=== PATIENT | female | born 1935 | race Caucasian/White ===

== ENCOUNTER → 2023-06-15 10:04 | Outpatient (REF) | payer OTHER, SELFPAY | LOC: RCS 10:04 | PROVIDERS: ATTENDING PHYSICIAN Internal Medicine Cardiovascular Disease; FAMILY PHYSICIAN Internal Medicine Geriatric Medicine | DX: E78.00 Pure hypercholesterolemia, unspecified (principal); I10 Essential (primary) hypertension; I35.0 Nonrheumatic aortic (valve) stenosis; I45.0 Right fascicular block; R01.1 Cardiac murmur, unspecified | CPT/HCPCS: 93306 ==

== ENCOUNTER 2023-08-29 07:16 | Day surgery (SDC) | payer OTHER, SELFPAY ==
[2023-08-29] VITALS (14 sets, daily range): BP systolic 99–150; BP diastolic 43–83; BMI 24.8
[2023-08-29] MEDS: NSS 191 ML IV (07:58)
--- NOTE | 2023-08-29 10:53 | ITS.CL.CATH ---
[employer] - Catheterization
Cardiac Catheterization
Procedure Report:
CARDIAC CATHETERIZATION REPORT
Date of Procedure: 08/29/2023
Referring: Solomon Lau MD
Indication: Symptomatic aortic stenosis with history CABG x 3 (2007 at [facility])
HEMODYNAMIC DATA
AO: 157/63
LV: 196/15
The mean gradient across the aortic valve is 39 mmHg
LEFT VENTRICULOGRAPHY: Not performed
CORONARY ANGIOGRAPHY
Dominance: Right
Left Main: Normal
LAD: Focal 80% mid LAD stenosis proximal to the touchdown of a widely patent PASTORA graft. The distal LAD and large third diagonal branch fill antegrade and via the VILLAFUERTE graft
Circumflex: The circumflex is occluded distal to the takeoff of the medium to large OM1. There is retrograde filling of the large bifurcating OM 2 via LAD collaterals and the distal circumflex also fills via a collateral from the left AV groove
branch
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 The severely calcified RCA is diffusely diseased in the mid vessel and occluded proximal to the crux. There are collaterals from the conus through the AV
holger artery to supply the small RPL. There are collaterals from a acute marginal branch to the distal RPDA which faintly fills.
Bypass grafts:
1. The left internal mammary artery to the LAD is widely patent with excellent runoff
2. The vein graft to the RPDA is occluded at its origin.
3. The vein graft to the obtuse marginal branch of the circumflex is occluded at its origin
Closure Device: None. Right femoral artery angiography demonstrates 50% ostial right common iliac artery stenosis with significant calcification of the distal aorta and proximal iliac vessels bilaterally. We opted not to place a closure device as
the patient will be undergoing evaluation for TAVR
Radiation (mGy): 422
DAP (cm2.Gy): 35.7
Fluoroscopy time: 14 minutes
CONCLUSIONS
1: Severe aortic stenosis with mean gradient 39 mmHg
2: Severe campo triple-vessel CAD with patent VILLAFUERTE-LAD and occluded SVG-OM and occluded SVG-RPDA bypass grafts
3. There is no target for PCI-recommend continued medical therapy for CAD
4. Proceed with evaluation for TAVR
Copy to: Solomon Lau MD, Tray Roche MD
Johnny Gramajo MD, [facility], [facility]
[2023-08-29] MEDS: NSS 95 IV (11:08)
--- NOTE | 2023-08-29 12:00 | PTCARENOTE ---
Melodei with TAVR team speaking with pt. Pt just awoke from nap. Tolerating sips cranberry juice.
--- NOTE | 2023-08-29 12:46 | CONSULT.STRU ---
Consultation
-
Date/Time Consultation Requested: 08/29/2023
Date/Time Consultation Performed: 08/29/2023
Requesting Provider: Johnny Gramajo MD
Performing Provider: ARMEN Jimenez
Reason for Consultation: Aortic stenosis/ TAVR evaluation
Patient History
Physicians
Family Physician: Tray Roche
Outpatient Drilling Manager: Solomon Lau
Primary Drilling Manager: Solomon Lau
History of Present Illness
Mrs. Rose is a very pleasant, well appearing 87yo female who is followed by Dr. Lau as an outpatient. She presents today for cardiac catheterization. Her history is notable for NSTEMI 2023, CABG x 3 (VILLAFUERTE-LAD, SVG-LCX, SVG RPDA) 2003 in
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 She reports some mild CROWELL compared to 6 months ago but is complaining more of increased fatigue compared to last year. She stays active but does
feel she needs more frequent breaks. Her echocardiogram on 06/15/2023 showed AV PG/MG 67/37, JASMIN: 0.7, EF 60-65% and mild to moderate MR. Her cardiac cath shows severe with MG of 39, patent VILLAFUERTE-LAD graft and occluded SVG-OM and SVG-RPDA grafts.
Reviewed the pathophysiology of aortic stenosis with the patient. Explained the treatment options of SAVR and TAVR. Explained the TAVR evaluation process including follow up BMP, CT TAVR scan, CT surgery consult and Heart Team discussion. Provided
with script for BMP next week, script and appointment for CT TAVR, Consult appointment with Dr. Acevedo and a copy of the TAVR education booklet with contact information. Allowed for and answered questions.
Past Medical History
Past Medical History: CAD (h/o CABG 2003), Cancer (B- Cell Lymphoma ( Dr. Galeano)), CHF, Covid-19 (10/2021), CROWELL, HTN, Hypercholesterolemia and Valvular Disease (Aortic Stenosis, mild to moderate MR, Mild TR)
Past Surgical History
Past Surgical History: CABG (X3, [place], [place] 2004), Orthopedic (L-THR, redo-L-THR, R-THR) and Other (Bilateral Cataract Surgery)
Dental History
Regular Dental Care - Dr. Hieu Farmer [phone]
Family History
Mother: at Age (76, CHF)
Father: at Age (76, CHF)
Family Medical History: CAD (Brother)
Social History
Alcohol: Occasional
Drug: None
Tobacco: Non-Smoker
Personal:
Living: Alone
Employment: Retired
Allergies
Allergy/AdvReac Type Severity Reaction Status Date / Time
amoxicillin Allergy Unknown Verified 08/29/23 07:36
lactose Allergy Unknown Verified 08/29/23 07:38
Home Medications
�Medication �Instructions �Recorded �Confirmed �Type
aspirin 81 mg tablet,delayed 81 mg PO DAILY #1 tab 08/29/23 Rx
release
calcium carbonate 1,000 mg PO QPM 08/29/23 08/29/23 History
cholecalciferol (vitamin D3) 25 25 mcg PO DAILY 08/29/23 08/29/23 History
mcg (1,000 unit) capsule (Vitamin
D3)
ezetimibe 10 mg-simvastatin 40 mg 1 tab PO QPM 08/29/23 08/29/23 History
tablet
furosemide 20 mg tablet 20 mg PO Q48H 08/29/23 08/29/23 History
glucosamine sulfate 500 mg tablet 500 mg PO DAILY 08/29/23 08/29/23 History
(Glucosamine)
metoprolol succinate 25 mg 25 mg PO DAILY 08/29/23 08/29/23 History
tablet,extended release 24 hr
vitamin B complex 1 tab PO DAILY 08/29/23 08/29/23 History
STS%
STS %: 7.42%
Review of Systems
-
History Source: Patient
General: Reports Fatigue
HEENT: Reports No Symptoms
Respiratory: Reports CROWELL (mild)
Cardiac: Reports Palpitations (occasional) and Edema (bilateral LE); Denies Nausea or Vomiting
Abdomen/GI: Reports No Symptoms; Denies Reflux, Nausea, Vomiting or Diarrhea
: Reports No Symptoms
Musculoskeletal: Reports No Symptoms
Skin: Reports No Symptoms
Neurological: Reports No Symptoms; Denies Syncope
Vascular: Reports No Symptoms
Physical Exam
Vital Signs
Temp 98 F 08/29/23 10:20
Temp route: Temporal 08/29/23 10:20
Pulse 57 08/29/23 12:00
Resp Rate 25 08/29/23 12:00
Blood pressure 99/50 08/29/23 11:58
Blood pressure extremity used: Right upper arm 08/29/23 10:20
Position: Lying 08/29/23 10:20
MAP (cuff-Clarisa Monitor) 64 08/29/23 11:58
SaO2 99 08/29/23 12:00
Oxygen Mode of Delivery Room air 08/29/23 10:20
Can the patient verbally communicate their pain? Yes 08/29/23 12:05
Actual Weight 63.5 kg 08/29/23 07:38
Body Mass Index (BMI) 24.8 08/29/23 07:38
Labs
08/25/2023 ([facility])
H/H: 14.1/43.4
WBC: 6.8
Platelets: [id number]
Bun/Creat: 19/.07
GFR: 50
Diagnostic Studies
Echocardiogram 06/15/2023:
CONCLUSIONS
No regional wall motion abnormalities are seen. LV ejection fraction is 60-65%.
Normal right ventricular size with low normal function.
Severely dilated left atrium.
Mild to moderate mitral regurgitation.
Severe aortic stenosis; peak/mean gradients are 67/37 mmHg, calculated JASMIN 0.7
cm.
There appeared to be possible color flow pattern suggestive of small PFO.
Compared to previous echo on 06/25/2022, aortic transvalvular gradients have
increased (previous peak/mean gradients were 51/31 mmHg.
Indications:
HYPERCHOLESTEROLEMIA, HYPERTENSION, AV STENOSIS, RBBB, MURMUR
Rhythm: Sinus
Portable Study: No
Technical Quality: Fair
Contrast: None
BP: 140 / 62
PROCEDURE
A complete Transthoracic Echocardiogram was performed utilizing two-dimensional
evaluation with color flow and spectral Doppler analysis.
FINDINGS
Left Ventricle
Normal left ventricular size and systolic function. Mild to moderate concentric
left ventricular hypertrophy. No regional wall motion abnormalities are seen.
LV ejection fraction is 60-65%. Stage I diastolic dysfunction suggestive of
abnormal relaxation.
Right Ventricle
Normal right ventricular size with low normal function.
Left Atrium
Severely dilated left atrium.
Right Atrium
Normal right atrium.
Mitral Valve
Mitral valve opens normally. Thickened mitral valve leaflets. Mild to moderate
mitral regurgitation.
Aortic Valve
Thickened trileaflet aortic valve with severely restricted leaflet motion.
Severe aortic stenosis; peak/mean gradients are 67/37 mmHg, calculated JASMIN 0.7
cm. No aortic regurgitation is seen.
Tricuspid Valve
Tricuspid valve opens normally. Mild tricuspid regurgitation. Estimated
pulmonary artery pressure of 25-20 mmHg.
Pulmonic Valve
Structurally normal pulmonic valve. Mild pulmonic regurgitation.
Pericardium\\Pleura
Normal pericardium without effusion.
Aorta
The aortic root is of normal size. Normal ascending aorta.
Other Finding
The IVC is of normal size and demonstrates normal respiratory variation. There
appeared to be possible color flow pattern suggestive of small PFO. Interatrial
septum is intact with no evidence of shunting by color flow Doppler.
MEASUREMENTS (Male / Female) Normal Values
2D ECHO
LV Diastolic Diameter PLAX 4.5 cm 4.2 - 5.9 / 3.9 - 5.3 cm
LV Systolic Diameter PLAX 3.2 cm
IVS Diastolic Thickness 1.3 cm 0.6 - 1.0 / 0.6 - 0.9 cm
LVPW Diastolic Thickness 1.2 cm 0.6 - 1.0 / 0.6 - 0.9 cm
LV Relative Wall Thickness 0.6
LVOT Diameter 2.1 cm
LV Ejection Fraction MOD BP 61.3 % >= 55 %
LV Stroke Volume MOD BP 38.0 cm3
LV Cardiac Index MOD BP 1280.3 cm3/min
LV Ejection Fraction MOD 4C 64.7 %
LV Stroke Volume MOD 4C 44.0 cm3
LV Ejection Fraction 4C AL 64.8 %
LV Stroke Volume 4C AL 45.1 cm3
LV Ejection Fraction MOD 2C 58.9 %
LV Stroke Volume MOD 2C 33.0 cm3
LV Ejection Fraction 2C AL 61.4 %
LV Stroke Volume 2C AL 36.2 cm3
LA Area 4C View 21.8 cm2 <= 20 cm2
LA Length 4C 5.8 cm
LA Volume 68.0 cm3 18 - 58 / 22 - 52 cm3
LA Volume Index 37.1 cm3/m2 16 - 34 cm3/m2
Ascending Aorta Diameter 3.7 cm
M-MODE
Aortic Root Diameter MM 3.1 cm
LA Systolic Diameter MM 4.4 cm
LA Ao Ratio MM 1.4
DOPPLER
AV Peak Velocity 410.0 cm/s
AV Peak Gradient 67.2 mmHg
AV Mean Gradient 37.0 mmHg
AV Velocity Time Integral 90.9 cm
LVOT Peak Velocity 89.1 cm/s
LVOT Peak Gradient 3.2 mmHg
LVOT Velocity Time Integral 21.0 cm
LVOT Stroke Volume 72.9 cm3
LVOT Stroke Volume Index 42.4 ml/m2 empty
LVOT Cardiac Index 2456.4 cm3/min\\m2
AV Area Cont Eq vti 0.8 cm2
AV Area Cont Eq pk 0.8 cm2
Mitral E Point Velocity 79.5 cm/s
Mitral A Point Velocity 116.0 cm/s
Mitral E to A Ratio 0.7
LV E' Lateral Velocity 7.2 cm/s
Mitral E to LV E' Lateral Ratio 11.0
LV E' Septal Velocity 3.4 cm/s
Mitral E to LV E' Septal Ratio 23.3
TR Peak Velocity 195.0 cm/s
TR Peak Gradient 15.2 mmHg
HEMODYNAMIC DATA
AO: 157/63
LV: 196/15
The mean gradient across the aortic valve is 39 mmHg
Cardiac Catheterization 08/29/2023:
LEFT VENTRICULOGRAPHY: Not performed
CORONARY ANGIOGRAPHY
Dominance: Right
Left Main: Normal
LAD: Focal 80% mid LAD stenosis proximal to the touchdown of a widely patent PASTORA graft. The distal LAD and large third diagonal branch fill antegrade and via the VILLAFUERTE graft
Circumflex: The circumflex is occluded distal to the takeoff of the medium to large OM1. There is retrograde filling of the large bifurcating OM 2 via LAD collaterals and the distal circumflex also fills via a collateral from the left AV groove
branch
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 The severely calcified RCA is diffusely diseased in the mid vessel and occluded proximal to the crux. There are collaterals from the conus through the AV
holger artery to supply the small RPL. There are collaterals from a acute marginal branch to the distal RPDA which faintly fills.
Bypass grafts:
1. The left internal mammary artery to the LAD is widely patent with excellent runoff
2. The vein graft to the RPDA is occluded at its origin.
3. The vein graft to the obtuse marginal branch of the circumflex is occluded at its origin
Closure Device: None. Right femoral artery angiography demonstrates 50% ostial right common iliac artery stenosis with significant calcification of the distal aorta and proximal iliac vessels bilaterally. We opted not to place a closure device as
the patient will be undergoing evaluation for TAVR
Radiation (mGy): 422
DAP (cm2.Gy): 35.7
Fluoroscopy time: 14 minutes
CONCLUSIONS
1: Severe aortic stenosis with mean gradient 39 mmHg
2: Severe elem triple-vessel CAD with patent VILLAFUERTE-LAD and occluded SVG-OM and occluded SVG-RPDA bypass grafts
3. There is no target for PCI-recommend continued medical therapy for CAD
4. Proceed with evaluation for TAVR
Exam
General: Well Developed, Well Nourished, No Apparent Distress and Comfortable
HEENT: Normocephalic, Moist Mucous Membranes, PERRLA and EOMI
Neck: Trachea Midline
Respiratory: Clear; Negative Wheezes, Crackles or Rhonchi
Cardiac: S1/S2, Regular Rhythm and Murmur (Grade II/ systolic murmur)
GI: Soft, Non Tender, Non Distended and Normal Bowel Sounds
Rectal: Deferred by Provider
Skin: Warm and Dry
Neuro: AO x 3, No Motor Deficits and Nonfocal/Grossly Intact
Extremities: Lower Level Edema (+1 pitting bilateral LE) and Pulses (right dp pulse +2, left dp pulse +1)
Psych: Calm
Assessment / Plan
-
Procedure Type:�Isolated AVR
PERIOPERATIVE OUTCOME ESTIMATE %
Operative Mortality 7.42%
Morbidity & Mortality 12.9%
Stroke 3.38%
Renal Failure 1.96%
Reoperation 3.49%
Prolonged Ventilation 10.3%
Deep Sternal Wound Infection 0.077%
Long Hospital Stay (>14 days) 6.04%
Short Hospital Stay (<6 days)* 27.1%
Severe Aortic stenosis:
��������������� Continue evaluation for TAVR as an outpatient
��������������� [facility]
��������������� CT TAVR scan 09/09/2023 at 0930 at
��������������� CT surgery consult with Dr. Acevedo 09/15/2023
��������������� Heart team discussion at [facility]
Dental Clearance - Dr. Hieu Farmer
Data Reviewed
-
EKG: Report Reviewed by me (R-BBB)
Publishing Manager: Report Reviewed by me and Discussed with Physician
Echo: Report Reviewed by me and Discussed with Physician
Labs: Labs Reviewed by me
Old Records: Reviewed (Cardiology consult notes)
Total Time Spent with Patient (in minutes): 25
== END 2023-08-29 14:00 | disposition home or self-care (01) ==
LOC: CATH 07:16
PROVIDERS: ATTENDING PHYSICIAN Internal Medicine Cardiovascular Disease; FAMILY PHYSICIAN Internal Medicine Geriatric Medicine; OTHER PHYSICIAN Internal Medicine Cardiovascular Disease
DX: I25.10 Atherosclerotic heart disease of native coronary artery without angina pectoris (principal); I25.810 Atherosclerosis of coronary artery bypass graft(s) without angina pectoris; I08.0 Rheumatic disorders of both mitral and aortic valves; I70.0 Atherosclerosis of aorta; Q24.5 Malformation of coronary vessels; E78.00 Pure hypercholesterolemia, unspecified; I25.2 Old myocardial infarction; Z85.72 Personal history of non-Hodgkin lymphomas; Z79.82 Long term (current) use of aspirin; Z79.899 Other long term (current) drug therapy; I11.0 Hypertensive heart disease with heart failure; I45.10 Unspecified right bundle-branch block; I35.0 Nonrheumatic aortic (valve) stenosis; I08.2 Rheumatic disorders of both aortic and tricuspid valves; I70.8 Atherosclerosis of other arteries
CPT/HCPCS: 93005; 93459; C1894; Q9967

== ENCOUNTER → 2023-09-16 09:12 | Outpatient (REF) | payer OTHER, SELFPAY | LOC: RAD 09:12 | PROVIDERS: ATTENDING PHYSICIAN Nurse Practitioner Adult Health; FAMILY PHYSICIAN Internal Medicine Geriatric Medicine; REFERRING PHYSICIAN Internal Medicine | DX: I35.0 Nonrheumatic aortic (valve) stenosis (principal) | CPT/HCPCS: 74174; 75572; Q9967 ==

== ENCOUNTER 2023-10-13 07:45 | Inpatient (IN) | payer OTHER, SELFPAY ==
[2023-10-03 12:13] VITALS: BMI 25.4
[2023-10-03 13:05] LABS: % Basophils 0.7 % (0-2); % Eosinophils 4.6 % (0-6); % Immature Granulocytes 0.3 % (0-0.5); % Lymphocytes 15.5 % (20.5-51.1); % Monocytes 10.6 % (1.7-9.3); % Neutrophils 68.3 % (42.2-75.2); Absolute Basophils 0.1 10^3/uL (0-0.2); Absolute Eosinophils 0.3 10^3/uL (0-0.7); Absolute Monocytes 0.7 10^3/uL (0.1-0.6); Absolute Neutrophils 4.6 10^3/uL (1.4-6.5); Hematocrit 41.9 % (37.0-47.0); Hemoglobin 14.4 g/dL (12.0-16.0); Mean Corp Hgb Conc. 34.4 g/dL (33.0-37.0); Mean Corpuscular Hgb 30.4 pg (27.0-31.0); Mean Corpuscular Volume 88.6 fL (81.0-99.0); Mean Platelet Volume 10.6 fL (7.4-10.4); Nucleated Red Blood Cells % 0 %; Platelet Count 217 10^3/uL (130-400); Red Blood Cell Count 4.73 10^6/uL (4.20-5.40); Red Cell Dist. Width 13.2 % (11.5-14.5); White Blood Cell Count 6.7 10^3/uL (4.8-10.8)
[2023-10-03 13:08] LABS: INR 1.02; PT 13.2 Sec (11.4-14.6)
[2023-10-03 13:09] LABS: APTT 37.7 Sec (23.4-35.0)
[2023-10-03 13:15] LABS: ALT (SGPT) 25 U/L (0-35); AST (SGOT) 27 U/L (14-36); Albumin 4.4 g/dl (3.5-5.0); Alkaline Phosphatase 64 U/L (38-126); Blood Urea Nitrogen 24 mg/dl (7-17); Calcium 9.9 mg/dl (8.4-10.2); Carbon Dioxide 29 mmol/L (22-30); Chloride 104 mmol/L (98-107); Direct Bilirubin 0.1 mg/dl (0.0-0.4); Estimated Creatinine Clearance 31 ml/min; Glucose 84 mg/dl (70-99); Potassium 4.9 mmol/L (3.5-5.1); Sodium 142 mmol/L (135-145); Total Bilirubin 0.7 mg/dl (0.2-1.3); Total Protein 6.9 g/dl (6.3-8.2); eGFR 54.53
[2023-10-03 13:21] LABS: NT-proBNP 1290 pg/ml
[2023-10-03 13:30] LABS: Glycohemoglobin (HgbA1c) 7.1 % (4.0-5.6)
[2023-10-03 13:39] LABS: Urine Albumin Negative (Neg - Trace); Urine Bilirubin Negative (Negative); Urine Character Clear (Clear); Urine Color Yellow; Urine Glucose Negative (Negative); Urine Ketone Negative (Negative); Urine Leukocyte Negative (Negative); Urine Nitrite Negative (Negative); Urine Occult Blood Negative (Negative); Urine Specific Gravity 1.015 (<1.030); Urine Urobilinogen Negative (Neg - 1+)
--- NOTE | 2023-10-03 15:03 | CM ---
spoke to pt in PAT's, we discussed preop TAVR teaching including lifting and driving restrictions. she lives alone in a 2 story home with a first floor set up. her son will stay with her after dc. she has a cane and a walker at home to use if
needed. she has the TAVR educ book, soap and instructions. sheis agreeable to a f/u visit from the ct transitional care nurse after dc. plan is for TAVR 10/12/, cm role explained and all questions answered.
[2023-10-13] VITALS (33 sets, daily range): BP systolic 75–144; BP diastolic 41–79; BMI 25.1
[2023-10-13] MEDS: PROTONIX 40 MG PO (08:11)
--- NOTE | 2023-10-13 08:29 | CM ---
Reviewed chart. Mrs. Rose is in the operating room today. Prior to admission she resides alone in a two story home. She has a first floor set-up. She has a walker and single point cane at home. Her son will stay with her when she goes home.
Medical work-up in progress. The discharge plan is to return home with her son staying with her and a home visit by the Cardiothoracic Transitional Care Nurse when medically stable.
[2023-10-13] MEDS: DELTASONE 50 MG PO (08:40)
[2023-10-13] MEDS: BENADRYL 50 MG PO (08:40)
[2023-10-13 11:06] LABS: ACT-LR - POC 271 Seconds (116-155)
[2023-10-13 11:21] LABS: ACT-LR - POC 252 Seconds (116-155)
[2023-10-13 11:45] LABS: ACT-LR - POC 297 Seconds (116-155)
--- NOTE | 2023-10-13 12:26 | W.CVOR.SURPR ---
CVOR Surgeon Immed Pre Op
-
I have examined this patient prior to performance of the scheduled procedure.
The patient's condition is unchanged from the time of the dictated/written History and
Physical and the patient is able to undergo the scheduled procedure.
--- NOTE | 2023-10-13 12:26 | W.PN.UPDATE ---
Update Note
Progress Note Update
Reviewed Ms. Rose with the heart team in the preTAVR SDM and confirmed a 23 mm S3 via (R) TF access. Patient will resume aspirin post TAVR. LVEDP 28 mmHg. #23 mm S3 (serial# [id number]) successfully deployed via (R) TF access. Post implant MG 4mmHg.
--- NOTE | 2023-10-13 12:26 | W.IMMPOSTOP ---
Surgical Immed Post Op Note
-
[id number]
STRUCTURAL HEART PROCEDURE NOTE: TAVR
Preoperative Dx:
Severe aortic stenosis (P/M: 67/37, JASMIN 0.7, Bi Manager: 4.1)
CAD s/p prior CABG in 2003 (ANGIE to LAD, GSV to OM, GSV to RPDA) - ANGIE patent; both GSV occluded
RBBB
Hx of B-cell lymphoma
HTN/HChol
PVD
Postoperative Dx:
Same
[id number] combined systolic/diastolic CHF w/ elevated LVEDP @ ~28mmHg
Procedures:
1) L CFV access w/ U/S and fluoroscopic guidance, micropuncture technique, 6Fr sheath placement
2) Attempted placement of temporary RV pacing wire - unsuccessful secondary to tortuous pelvic venous anatomy
3) Exchange for LONG 6Fr L CFV sheath w/ subsequent successful placement of temporary RV pacing wire; threshold testing
4) L RA access w/ tactile, U/S, and fluoroscopic guidance, micropuncture technique, 6Fr sheath placement
5) Placement of pigtail catheter in RCC via L RA w/ limited aortography & confirmation of co-planar valve deployment angles
6) R WARRANT SERVER access w/ tactile, U/S, and fluoroscopic guidance, micropuncture technique, limited angiography via micropuncture sheath, 6Fr sheath placement
7) 8Fr dilator placement, perclose placement x 2 into R WARRANT SERVER, 8Fr sheath placement
8) Serial dilation of R ileofemoral system w/ subsequent placement of Wood E-sheath
9) Wire purchase across stenotic AV (challenging requiring numerous attempts/catheters; AL-1, AL-2, JR-4, soft-tip straight, [id number], glidewire); LVEDP assessment
10) Advance of Wood 23mm SHYAM 3 valve to ascending aorta
11) Attempted reposition of pigtail catheter w/o success
12) L WARRANT SERVER access w/ tactile, U/S, and fluoroscopic guidance; micropuncture technique, 6Fr sheath placement
13) Attempted placement of pigtail catheter via L WARRANT SERVER approach (unsuccessful)
14) Repositioning of Wood valve/delivery system to proximal descending thoracic aorta
15) Re-attempt at pigtail placement via L RA (unsuccessful) w/ subsequent successful placement of multi-purpose catheter via L RA
16) Re-advancement of SHYAM 3 valve
17) R TF TAVR w/ placement of 23mm SHYAM 3 valve
18) Completion aortography
19) Completion TTE (mean gradient 5mmHg, no AI/PVL)
20) Removal of multi-purpose catheter
21) Placement of pigtail catheter into distal abdominal aorta via L WARRANT SERVER access
20) Removal of valve delivery system & Wood E-sheath w/ R WARRANT SERVER mgmt w/ perclose sutures x 2; manual pressure
21) Completion R ileofemoral angiography
22) Limited L WARRANT SERVER angiography
23) Removal of L WARRANT SERVER 6Fr sheath w/ mgmt w/ 6Fr angioseal; manual pressure
24) Removal of 6Fr L RA sheath w/ mgmt w/ radial band
25) Temporary RV pacing wire secured in-situ given pacing requirements - pt. regained a NSR w/ BBB near the end of the procedure
Furnace Firer:
Dr. Elan Obando
Cardiac Surgeon:
Dr. Segundo Fleming
Anesthesia:
MAC & local to B/L groins, L wrist
Implants:
Wood [employer]; 23mm SHYAM 3 valve; SN [id number]
Perclose x 2
6Fr angioseal x 1
Cath Data:
Start: 1011hrs, Deploy: 1155hrs, End: 1221hrs
FT: 45.7min, mGy: 363.95, DAP: 45.0185, Contrast: 86mL
Post-TTE: mean gradient 5mmHg, no AI/PVL
Complications:
No significant; transient pacing requirements
Condition:
Stable/guarded to recovery
--- NOTE | 2023-10-13 12:44 | ITS.CL.TAVR ---
Data Coordinator - TAVR Report
TAVR PRocedure
Procedure Report:
Procedure Report:
TRANSCATHETER AORTIC VALVE REPLACEMENT REPORT
Date: 10/13/2023
Referring physician: Dr. Solomon Lau
Preop diagnosis: severe aortic stenosis
Postop diagnosis: severe aortic stenosis
Procedure: transcatheter aortic valve replacement (TAVR) using a #23 Wood DWAYNE S3 Ultra
Operators: Elan Obando MD, PhD; Segundo Fleming MD
Findings: severely calcified and stenotic aortic valve
Anesthesia: Conscious sedation was provided by the anesthesia staff
Estimated blood loss: negligible
Complications: none
Condition: stable
Procedure:
The patient was brought to the cardiac crime lab analyst after consent and was prepped and draped in standard sterile fashion. Conscious sedation was provided by the anesthesia staff. After a 'Time Out,' the left common femoral vein was accessed using a
modified Seldinger technique with a micropuncture kit under ultrasound guidance. In order to navigate vessel tortuosity a long sheath was placed, after which the temporary pacing wire was able to be advanced into the right ventricle, capture
verified, and set to backup. 6F left radial artery access was then obtained under ultrasound guidance and a 5Fr angled pigtail catheter advanced to the ascending aorta with some difficulty, requiring use of a Cardenas wire and JR4 catheter to navigate
tortuosity. Angiography confirmed the co-planar angle. The right common femoral artery (device side) was then accessed using a modified Seldinger technique with a micropuncture kit under ultrasound guidance followed by placement of a 6Fr sheath. The
tract was dilated with an 8Fr sheath, followed by placement of two Perclose sutures in 'pre-close' fashion and replacement of the 8F sheath.
An AL-1 catheter was advanced through the 8Fr sheath and the J wire was exchanged for an Amplatz Extrastiff wire in the descending aorta. The catheter and the 8 Fr sheath were removed and a 14 Fr dilator was advanced over the Extrastiff wire to the
descending aorta. The dilator was removed and the 14 Fr Wood E-sheath was inserted over the wire and into the descending aorta. Heparin 5000 units was given. The DWAYNE S3 was prepared on the back table. Orientation was confirmed by both
physicians. The AL-1 catheter was re-advanced through the E-sheath to the level of the ascending aorta. The Extrastiff wire was removed and a soft tip straight wire was advanced through the AL-1. The wire was unable to successfully cross despite
multiple attempts using an AL1, JR4, and AR2 catheter. Crossing was achieved using the AR2 and an angled Glidewire. The Glidewire was then exchanged in the ventricle for an Amplatz Extrastiff wire with curved proximal end placed in the left
ventricle apex after which the AR2 catheter was removed. ACT was checked and confirmed to be > 250 seconds.
The valve was advanced over the Extrastiff wire and into the descending aorta. The balloon was withdrawn and the valve was mounted on the balloon. The valve was advanced over the aortic arch and into the aortic valve annulus. The pusher device was
withdrawn to allow for balloon expansion. When attempting to reposition the pigtail catheter to perform aortography, the pigtail was unable to be advanced due to due subclavian tortuosity. Attempts were made using a 4F pigtail and stiffer wires
without success. 6F left common femoral artery access was then obtained with micropuncture technique and ultrasound guidance. We attempted to advanced the 5F and 4F pigtail catheters from the groin without success, despite use of a stiff wire,
likely due to iliac tortuosity and severe calcific stenosis in the distal descending aorta. Through the left radial artery, a 5F Multipurpose catheter was able to be advanced to the ascending aorta with difficulty using an Amplatz Extrastiff wire.
Hand injection angiography through the Multipurpose was performed to confirm co-planar angle. The valve was then re-advanced up and over the arch, and the pusher again withdrawn. After confirming valve positioning, the valve was deployed during
rapid ventricular pacing. Echocardiography and aortography confirmed a good result with no aortic valve insufficiency and a 4 mmHg mean gradient. The valve deployment system was removed. The patient was initially in complete heart block, so the
pacemaker was sewn in place. The patient later regained what appeared to be sinus bradycardia with first degree block. The Wood E sheath was then removed and hemostasis obtained with the two Perclose sutures. Via a pigtail catheter advanced
through the left femoral artery sheath, final angiography was performed and demonstrated no evidence of ileofemoral dissection/perforation and good runoff below the common femoral artery. The pigtail catheter was removed and hand injection
angiography through the left common femoral artery sheath demonstrated appropriate VENTILATION MECHANIC placement. The left common femoral artery sheath removed and closed with a 6 Fr Angioseal. The left femoral venous sheath was removed and manual pressure was
applied with excellent hemostasis. A radial TR band was placed at the radial artery site.
Hemodynamics
pre-deployment LV pressure (s/x, mmHg): 197/12 (EDP 28)
post-deployment mean TAVR echo gradient (mmHg): 4
Radiation
Dose (mGy): 363.95
DAP (cm2.Gy): 45.01
Fluoroscopy time (minutes): 45.7
Conclusions:
1. Successful placement of #23 Dwayne S3 Ultra aortic valve via right transfemoral approach with brief complete heart block resolved before patient left the room. Temporary venous pacemaker sewn in place.
2. Acute on chronic heart failure with elevated filling pressures (LVEDP = 28 mmHg).
Signed; Elan Obando MD, PhD
Copy to: Segundo Fleming MD; Solomon Lau MD, Tray Roche MD
--- NOTE | 2023-10-13 13:45 | PTCARENOTE ---
Dr Obando at bedside. Adjusted pacemaker rate down to 30 to assess pt's intrinsic rhythym. Will get an EKG as ordered and then return rate of pacemaker to 50.
[2023-10-13] MEDS: NSS 500 VEN SHEATH (14:07)
--- NOTE | 2023-10-13 14:30 | PTCARENOTE ---
pt received from open hearth furnace laborer admitted to room 2246. pt arouses easily to voice, oriented x3, denies pain. moves all extremities equally. pupils equal and reactive. pt 100% v paced, Left femoral vein temporary pacer set VVI 50 ma 20. bilateral dp pulses
weakly palpable. left radial TR band intact, left radial pulse palpable. open hearth furnace laborer nurse reports ecchymosis not new at this time. trace lower extremity edema. pt on room air, sat 95%. lung sounds diminished in bilateral bases. pt denies urge to void.
hypoactive bowel sounds. bilateral groin sites CDI. left venous sheath with KVO infusing at 10 ml per orders. pt educated on importance of laying flat and not bending legs. see worklist for full nursing assessment and interventions.
[2023-10-13] MEDS: ANCEF 10 IV ×2 (15:18)
--- NOTE | 2023-10-13 18:01 | PTCARENOTE ---
report given to general labor RN, pt taken to general labor for PPM.
--- NOTE | 2023-10-13 19:20 | ITS.CL.PACE ---
Clinical Program Consultant - Pacemaker Implant
Pacemaker Implant
Procedure Report:
Left Bundle Branch pacing dual chamber Permanent Pacemaker Placement:
87-year-old woman with history of coronary disease status post CABG, severe aortic stenosis status post TAVR today with complete heart block is in need for a pacemaker.
Indications:
Complete heart block.
Date of the Procedure: 10/13/23
Pre-Operative Diagnosis: Complete heart block
Post-Operative Diagnosis: Complete heart block
Procedure Performed: LEFT BUNDLE BRANCH PACING WITH DUAL CHAMBER PERMANENT PACEMAKER IMPLANTATION.
Performing physician:
Mitzi Toscano MD
Anesthesia:
See anesthesia records
Detailed Description of the Procedure:
The patient was identified using hospital identification and informed consent obtained for the procedure. The risks were explained to the patient and the family including, but not limited to: Bleeding, infection, arrhythmia, stroke,
vascular/cardiac/lung puncture, surgery, pacemaker dependency/device malfunction. All questions were answered.
Anesthesia service provided sedation as reported separately. Antibiotics administered IV for risk of bacterial colonization. After obtaining informed and written consent, the patient was brought to the electrophysiology laboratory.
The initial rhythm was sinus rhythm with complete heart block and temporary wire pacing.
A timeout was performed immediately before the procedure. The left chest was prepped from the nipple to the angle of the jaw with chlorhexidine, and draped following sterile technique in usual routine.�
A surgical pause and time out was performed immediately prior to the procedure with review of her medical history, recent labs, allergies and medications with site of procedure identified and consent noted in the chart. Antibiotics pre operatively
given. All team members concurred.
The procedure site was meticulously prepared with surgical scrub and allowed to dry with no pooling. Sterile draping was applied to cover the procedure site. The image intensifier was draped with sterile bag and positioned over the patient.
The left infraclavicular region was prepped and draped in the usual sterile fashion. Local anesthesia was administered subcutaneously using 1% lidocaine / Bupivacaine. The left cephalic vein cutdown was done and guide wires were advanced to the
inferior vena cava (IVC) under flouro guidance.
A subcutaneous pocket was created with blunt dissection and use of electrocautery. Hemostasis was excellent.
Attention then was turned to the left bundle branch pacing lead. The guide wire was advanced to the RA and was advanced to the RV. The preformed curved long hemostatic peel away HIS sheath was advanced into the RV cavity. A left bundle pacing wire
was advanced into the sheath to the tip with ventricular signals noted with unipolar manner. The sheath with the pacing lead was moved deeper into the RV cavity from the HIS location on the septum at a more inferior and distal to the HIS signals.
Once adequate signals were noted on the electrograms of the pacing lead in the sheath with W pattern signals on the RV septum, the lead was advanced and clockwise turns were done under fluoroscopic guidance. The septum was engaged and the lead was
paced intermittently after every 2-3 turns. The Impedance of the lead was measured that remained stable around 1000 Ohm and the lead was not able to advance into the septum. The ventricular capture was monitored throughout and the captures gradually
changed from RV pacing to non-selective pacing to LBB pacing with R wave on V1.
With RBBB pattern noted on the pacing lead, it was decided to accept the location as optimal location. The long guiding sheath was cut and removed from the RV without change in lead position, impedance, sensing, or capture. The lead was sutured to
the underlying pectoralis fascia with 2-0 Ethibond stitches.
The RA lead was anchored in the right atrial appendage with engaging the active-fixation apparatus. There was excellent sensing, pacing, and impedance from the leads, with no diaphragmatic stimulation at 10 V output.�Bovie cautery, antibiotics, and
fluoroscopy were used.
The leads were attached to the pulse generator in standard configuration with acceptable sensing and threshold parameters. The pocket was irrigated with antibiotic solution; the pocket was inspected with no active bleeding noted. The device and the
leads were placed in the pocket.
A Tyrx pouch was placed around the device and the leads.
Deep subcutaneous tissues were closed with 3 layers of 2-0V loc sutures; and the dermis was reopposed using a running 4-0 V-Loc subcuticular suture. Sponge counts / sharp counts were appropriate.
Procedure End:
The procedure was tolerated well. Aquacel bandaged was applied. A pressure dressing was applied.
Estimated Blood loss:
5 cc
Specimens Removed:
No cultures and no specimens were obtained. No intraoperative pathology was identified.
Urine output:
None
Packs / Drains/ Tubes:
None
Instrument / Sponge Count Correct:
Yes
Flouro time:
1.8min / 3.4 mGy
Complications of the Procedure:
None
Condition of Patient at Time of Transfer:
Hemodynamically stable with no neurological or vascular compromise.
Device information:�
Generator: [employer]; Model: W1DR01; Serial # [id number]�
����������� Atrial Lead: [employer]; Model: 5076-45; Serial # [id number]
Measured data in the right atrium was sensing of 1.3 mV, impedance of 570 ohms and threshold of 0.75 V at 0.4ms�
����������� LBB pacing lead: Medtronic; Model: 3830-69; Serial # [id number]
����������������������� Measured data on the RV lead was sensing of 20 mV, impedance of 893 ohms and threshold of 1.0V at 0.4ms
PROGRAMMING PARAMETERS:�
Virgil parameter settings were DDDR 60-130 �
����������� Paced AV interval: 180ms
����������� Sensed AV interval: 150 ms.
����������� Rate Adaptive A-V Interval: off
����������� Mode switch ON
�
Summary:
Successful implantation of MRI compatible LBB pacing dual chamber pacemaker.
Results/Recommendations:
-Please follow up CXR�
1. Please provide patient with adequate pain control�
Instructions to be given to patient:�
- Please follow up with [facility] at [address] [place] [address] ([phone]) to get your wound checked in 2 weeks of your discharge. Then follow with
- Do not wet incision site until after it is evaluated at cardiology clinic. No baths or showers until then. Sponge baths / showers are OK but dab dry the dressing after it is wet.�
- Allow 'steri strips' to fall off on their own�
- Do not lift left elbow above shoulder, particularly with sudden jerking movements, for 1 month�
- Do not lift anything weighing more than 5 pounds with the left arm for 1 month�
- If you notice any fevers, shortness of breath, lightheadedness, chest pain, or worsening swelling in the wound site, please contact the arrhythmia clinic, contact your household appliances salesperson, or present to the hospital for evaluation.�
Mitzi Toscano MD
Electrophysiology
[2023-10-13] MEDS: ZETIA 10 MG PO (21:03)
[2023-10-13] MEDS: LIPITOR 20 MG PO (21:04)
[2023-10-13] MEDS: OSCAL CAL 500 1000 MG PO (21:04)
--- NOTE | 2023-10-13 21:20 | PTCARENOTE ---
Received pt from manager cardiac cath post PPM insertion. R upper chest wall w/ steri strips, aquacel c/d/i. R arm immobilizer on. B/l groin sites are c/d/i. L radial site is c/d/i. No hematoma/bleeding noted. Educated pt on activity restrictions. Verbalizes
understanding. Tele- AV paced. VSS. Neurologically intact. Currently in bed; call benny w/in reach.
[2023-10-13] MEDS: LR 250 IV (23:16)
[2023-10-13 23:30] LABS: Hemoglobin 12.5 g/dL (12.0-16.0); Platelet Count 176 10^3/uL (130-400)
--- NOTE | 2023-10-13 23:40 | PTCARENOTE ---
BP 82/49. Pennie GONZALEZ notified and at bedside. Orders placed. LR infusing at 150ml/hr per Pennie GONZALEZ. Labs drawn and sent. Pt has no c/o dizziness/lightheadedness. Currently in bed; call benny w/in reach.
[2023-10-14] VITALS (25 sets, daily range): BP systolic 91–135; BP diastolic 40–73; PULSE 62; O2SAT 94–98; BMI 26.7
--- NOTE | 2023-10-14 00:23 | PTCARENOTE ---
Pt BP remains low. 91/50. Pennie GONZALEZ at bedside. Stat portable CXR ordered per Pennie GONZALEZ.
[2023-10-14] MEDS: ANCEF 5 IV ×2 (00:53→08:14)
[2023-10-14 04:48] LABS: Hematocrit 32.6 % (37.0-47.0); Hemoglobin 11.6 g/dL (12.0-16.0); Mean Corp Hgb Conc. 35.6 g/dL (33.0-37.0); Mean Corpuscular Volume 90.1 fL (81.0-99.0); Mean Platelet Volume 10.2 fL (7.4-10.4); Platelet Count 170 10^3/uL (130-400); Red Blood Cell Count 3.62 10^6/uL (4.20-5.40); Red Cell Dist. Width 13.8 % (11.5-14.5); White Blood Cell Count 16.1 10^3/uL (4.8-10.8)
[2023-10-14 05:02] LABS: Blood Urea Nitrogen 23 mg/dl (7-17); Calcium 9.3 mg/dl (8.4-10.2); Carbon Dioxide 21 mmol/L (22-30); Chloride 107 mmol/L (98-107); Estimated Creatinine Clearance 31 ml/min; Glucose 213 mg/dl (70-99); Magnesium 2.3 mg/dl (1.6-2.3); Potassium 3.9 mmol/L (3.5-5.1); Sodium 142 mmol/L (135-145); eGFR 54.53
--- NOTE | 2023-10-14 05:04 | PTCARENOTE ---
Pt OOB to bedside commode w/ RN assist x2. Pt tolerated. Reports no lightheadedness/dizziness. B/l groin dsg are c/d/i.
--- NOTE | 2023-10-14 05:33 | W.PN.CT ---
Addendum entered and electronically signed by Segundo Fleming MD 10/14/23 14:45:
I saw and examined the patient.
The PA's note was reviewed and I agree with the note.
Comment:
Postop day 1 status post right transfemoral TAVR with placement of 23 mm SHYAM 3 valve; PPM placed for CHB
Echocardiogram completed today with LVEF 60 to 65%, well-seated 23 mm aortic valve without any aortic regurgitation with mean gradient of 15 mmHg
Patient with asymptomatic hypotension over the evening, responsive to IVF hemoglobin this a.m. 11.6 (down from 14.4 on 10/03/2023), groins are soft, repeat hemoglobin at 11 AM was 12.1
Out of bed I-S ambulate
Diuresis
Discharge planning for hopefully tomorrow
Original Note:
Today's Communication / Plan
-
-pod #1
-noted to be hypotensive with sbp 70s-90s overnight- asymptomatic, conversant, A&O -> Hg 12.5 (14.4 preop), stable CXR and groins. No back or abdominal pain. Responded to 250 LR
-H/h 11.6/32.6 this am (12.5/35.0 last night). BP was 90s supine this am and 118/52 after walking to the bathroom, no dizziness, no hematomas
-looked SOB after walking. LVEDP was 28- ordered 20 po Lasix this am (home dose). Consider re-checking h/h after diuresing
-nsr with v-pacing low 70s overnight
-IV dye allergy - was prepped with Prednisone and Benadryl
-Echo today
-current meds (ASA, Lipitor, Zetia, Lasix 20 qod). Will hold Toprol for low BP
-encourage IS, OOB
Assessment / Plan
-
- Severe symptomatic - s/p R TF TAVR w/ placement of 23mm SHYAM 3 valve on 10/13/23, pod #1
- Post-TTE: mean gradient 5mmHg, no AI/PVL
- CHB post TAVR - s/p implantation of Medtronic MRI compatible LBB pacing dual chamber pacemaker by Dr. Toscano on 10/13/23
- Wafmg-jn-kuaepbg combined systolic/diastolic CHF w/ elevated LVEDP @ ~28mmHg
- CAD s/p prior CABG in 2003 (ANGIE to LAD, GSV to OM, GSV to RPDA) - ANGIE patent; both GSV occluded
- RBBB
- Hx of B-cell lymphoma
- HTN/HChol
- PVD
- b/l THR
- Acute postop hypotension, asymptomatic, likely d/t hypovolemia - responded to IVF
Discussed patient care with: Nursing and Care Team
Subjective
-
Date of Service: October 14, 2023
Objective Data
-
PT 13.2 Sec (11.4-14.6) 10/03/23 12:24
INR 1.02 10/03/23 12:24
APTT 37.7 Sec (23.4-35.0) H 10/03/23 12:24
Vital Signs
Vital Signs
Temp Pulse Resp BP Pulse Ox
98.3 F 80 16 91/50 95
10/13/23 22:42 10/14/23 00:15 10/13/23 22:42 10/14/23 00:15 10/13/23 23:30
CT Intake/Output/Weight
10/13/23 10/13/23 10/14/23
06:59 18:59 06:59
Intake Total 1020 / 1020
Output Total 500 / 500
Balance 520 / 520
SaO2: 95
Physical Exam
-
General: Awake and AOx3
Cardiovascular: Regular rate & rhythm, Murmur (1/6 systolic @ lsb) and No Rub
Respiratory: Clear (decreased at bases)
Sternum: Stable
Incision: Other (groins are cdi, soft, nontender, no hematoma b/l)
Extremities: Other (trace edema b/l. DPs 1+ palpable b/l)
Data Reviewed
-
Lab Results: Results Reviewed
Medications: Active Meds Reviewed
Chest X-Ray: Report Reviewed and Image Reviewed
ECG: Report Reviewed and Image Reviewed
--- NOTE | 2023-10-14 07:00 | PTCARENOTE ---
received patient at change of shift. Pt AAOX3. denies pain. AV paced on telemetry heart rate 60s. Left chest wall incision with Aquacel intact, left arm immobilizer intact. pulses palpable. bilateral groin sites CDI. left radial site CDI with some
old ecchymosis. blood pressure low 100s. pt 1 assist OOB to chair. see worklist for full nursing assessment and interventions. pt updated on plan of care.
--- NOTE | 2023-10-14 08:09 | W.DCSUMMARY ---
Discharge Summary
Discharge Data
Date of Admission: 10/13/23
Date of Discharge: 10/14/23
-
Pending Results: No
Hospital Course
Primary care physician: Shan Roche
Outpatient termite exterminator helper: Solomon Lau
Inpatient consultants: [facility]
Procedures:
1. TAVR
2. Medtronic permanent pacemaker
Primary Diagnosis:
1. Severe aortic stenosis
Secondary Diagnoses:
1. Coronary artery disease s/p coronary artery bypass graft (2003)
2. Right bundle branch block
3. History of B-cell lymphoma
4. Hypertension
5. hypercholesterolemia
6. Peripheral vascular disease
7. Postop complete heart block
8. Ngrbb-qd-hlomuuk combined systolic/diastolic congestive heart failure with elevated left ventricular end diastolic pressure ~28mmHg.
HPI: 87-year-old female was electively admitted on 10/13/2023 for TAVR due to severe aortic stenosis
Hospital course: Patient underwent Right TF TAVR #23mm SHYAM 3 valve by Drs. Segundo Fleming and Johnny Gramajo. The listed amoxicillin allergy was a rash from neck to feet and discussion with pharmacy concluded that Ancef could be given. Ancef
was given without incident. Patient developed complete heart block post procedure and underwent a Medtronic dual-chamber permanent pacemaker insertion by Dr. Mitzi Toscano. Predischarge TTE was performed on 10/14/2023 and reported an EF of 60-65%,
no AI and AV peak gradient of 50 mmHg. Patient was deemed stable for discharge to home.
Home medication changes:
Discharge Plan
-
Patient Disposition: Home (Routine Discharge)
Discharge Diagnosis/Procedures: TF-TAVR, Pacemaker implant
Condition: Good
Diet: Low Cholesterol and 2 Gram Sodium
Activity: As tolerated
Driving Restrictions: No driving for 1 week
Bathing Restrictions: OK to Shower
Others Tests: 30 Day Follow Up Echocardiogram: 11/11/2023 at 10:20am at [facility]
Other Services: Cardiac Rehab
Wound Care: Please do not apply lotions, creams or powders to groin areas. Please monitor groins for increased pain, swelling, redness or drainage. Notify your doctor if any occur.
Specialty Instructions: Weigh Daily- Call MD for wt gain/loss 3 lbs overnight/5 lbs in 1 week
Stand Alone Forms: DC Inst - Implanted Device
Referrals:
CT Transitional Care Nurse [Outside] - in one to two days
(
The Cardiothoracic Transitional Care Nurse will call you to set up a visit in 1-2 days.)
[facility]. Cardiac Rehab [Outside] - 11/14/23 10:00 am
(Cardiac Rehab Orientation appointment and First Exercise appointment is on November 13 at 10:00.
The Cardiac Rehab gym is located on the first floor of the [facility].)
Sasha Pepper NP [Specified Professional Personl] - 11/09/23 2:00 pm
Tray Roche MD [Primary Care Provider] - in four to six weeks (Please make an appointment in four to six weeks. )
Prescriptions:
New
acetaminophen 325 mg Tablet
650 mg PO Q4HPRN PRN (Reason: W[place]ATT, mild pain, or fever >101F) Qty: 0 0RF
Continued
glucosamine sulfate [Glucosamine] 500 mg Tablet
500 mg PO DAILY
calcium carbonate 500 mg calcium (1,250 mg) Tablet
1,000 mg PO QPM
vitamin B complex Tablet
1 tab PO DAILY
furosemide 20 mg Tablet
20 mg PO Q48H
metoprolol succinate 25 mg Tablet Extended Release 24 Hr
25 mg PO DAILY
cholecalciferol (vitamin D3) [Vitamin D3] 25 mcg (1,000 unit) Capsule
25 mcg PO DAILY
ezetimibe-simvastatin 10-40 mg Tablet
1 tab PO QPM
aspirin 81 mg tablet,delayed release (DR/EC)
81 mg PO DAILY
Discharge Orders:
Discharge Patient (As Directed); Ordered 10/14/23
Ordered By: Megan Foster
Care Plan Goals
Care Plan Goals:
Problem: Readiness for enhanced knowledge related to diagnosis and treatment plan
Goal: Understand your diagnosis and treatment plan needs, including medications if applicable.
Instructions: Know your diagnosis, underlying causes and treatment plan options, including medications if applicable. Consult with your health care team to learn about your diagnosis and treatment plan, including medications if applicable.
Discharge Date and Time
Print Language: HEBREW
[2023-10-14] MEDS: ASPIR LOW (ENTERIC COATED) 81 MG PO (08:14)
[2023-10-14] MEDS: VITAMIN D3 (cholecalciferol) 25 MCG PO (08:14)
[2023-10-14] MEDS: LASIX 20 MG PO (10:14)
--- NOTE | 2023-10-14 10:24 | W.PN.CD ---
Today's Communication / Plan
-
doing well post TAVR/PPM, check afternoon Hb for stability, ambulate, hopeful d/c tomorrow
Impression / Plan
-
87 year old woman with history of CAD s/p CABGx3 (2003), RBBB, and severe symptomatic aortic stenosis s/p S23 TF-TAVR (Topher/Lonnie, 10/13/23) complicated by complete heart block s/p dcPPM (Brandin, 10/13/23).
She had a episode of asymptomatic hypotension overnight. She is feeling well and able to ambulate without lightheadedness. She had a 2g Hb drop noted post procedurally, otherwise no lab abnormalities. Immediate post-TAVR gradients were low (mean 5
mmHg), follow up TTE pending today. PPM and groin sites are clean and dry.
Plan:
# s/p TV TAVR c/b CHB s/p PPM
- echo today
- cont. ASA
- pacer functioning appropriately
# post-operative anemia
- no signs of bleeding, groin site reassuring
- repeat afternoon Hb, low threshold for CT scan if continued drop of clinical e/o bleeding/hypotension
# chronic diastolic heart failure
- LVEDP 28 mmHg during TAVR
- cont. lasix 20 mg PO daily, monitor blood pressure
- cont. metop 25 qD
# CAD s/p CABG
- cont. asa statin
# DM
- A1c 7.1
- consider SGLT2i as outpatient given concomitant HFpEF
Physical Exam
Vital Signs/Labs
Vital Signs
Temp Pulse Resp BP Pulse Ox
36.4 C 82 16 104/49 98
10/14/23 07:09 10/14/23 10:14 10/14/23 07:09 10/14/23 10:14 10/14/23 07:09
10/13/23 10/14/23 10/15/23
06:59 06:59 06:59
Actual Weight 66.1 kg
10/14/23 12:00
10/14/23 04:15
PT 13.2 Sec (11.4-14.6) 10/03/23 12:24
INR 1.02 10/03/23 12:24
APTT 37.7 Sec (23.4-35.0) H 10/03/23 12:24
Magnesium 2.3 mg/dl (1.6-2.3) 10/14/23 04:15
10/03/23
12:24
Lcd-O-Dxmpdzuvoaj Pept 1290
Physical Exam
Constitutional: No acute distress, Comfortable and Confusion
Cardiovascular: Rhythm & rate is regular, Pedal edema is absent, Systolic murmur absent and Diastolic murmur absent
Respiratory: Respiratory effort normal, Lungs clear to auscul., Wheeze Absent, Crackles Absent and Rhonchi Absent
Neuro/Psych: Alert, Oriented and AO x 3
Other: Cath Site
cdi
Data Reviewed
-
Date of Service: October 14, 2023
Medical Decision Making: Reviewed Test Results and Test Interpretation
EKG: Tracing Personally Visualized and interpreted
Echo: Tracing Personally Visualized and interpreted
Medical Tests (PFT, Pathology etc): Image Personally Visualized and interpreted
Labs: Labs Reviewed by me and Labs Ordered by me
--- NOTE | 2023-10-14 11:05 | PN.CDI ---
CDI
- -
CDI:
Physician Documentation Request
Admit Date: 10/13/23 07:[address] Surgery,
Please review the following and provide your response in the progress notes.
Clinical Indicators:
- 10/13 CT Surgery 'Bfsfg-[id number] combined systolic/diastolic CHF'
- 'elevated LVEDP @ ~28mmHg'
- 10/13 Cardiology 'chronic diastolic heart failure'
- 10/13 20 mg PO Furosemide (home med) given
In an attempt to clarify potentially conflicting documentation, please clarify the type and acuity of CHF:
Acute on chronic combined systolic/diastolic CHF
Chronic diastolic CHF
Other
Use of terms such as suspected, likely, concern for, or probable (associated with a specific diagnosis that is being evaluated, monitored, or treated as if it exists) are acceptable and can be coded in the inpatient setting, when documented at the
time of discharge.
Thank you,
Wayne Mello RN
CDI Specialist
Please use your independent medical judgment in providing your response.
--- NOTE | 2023-10-14 11:12 | W.PN.UPDATE ---
Update Note
Progress Note Update
CDI query response
Acute on chronic combined systolic/diastolic CHF
[2023-10-14 11:27] LABS: Hematocrit 34.9 % (37.0-47.0); Hemoglobin 12.1 g/dL (12.0-16.0); Mean Corp Hgb Conc. 34.7 g/dL (33.0-37.0); Mean Corpuscular Hgb 32.2 pg (27.0-31.0); Mean Corpuscular Volume 92.8 fL (81.0-99.0); Mean Platelet Volume 10.1 fL (7.4-10.4); Platelet Count 152 10^3/uL (130-400); Red Blood Cell Count 3.76 10^6/uL (4.20-5.40); Red Cell Dist. Width 13.6 % (11.5-14.5); White Blood Cell Count 14.2 10^3/uL (4.8-10.8)
--- NOTE | 2023-10-14 11:43 | CM ---
CM following for DC planning needs.
Met w/ patient at bedside. She reports that she is feeling well and hopeful for DC soon to home.
Reviewed DC plan for home w/ CT Transitional Care RN.
CM will cont. to follow.
== END 2023-10-14 17:03 | disposition home or self-care (01) | DRG 266 ==
LOC: IVU 07:45
PROVIDERS: Internal Medicine Cardiovascular Disease; Nurse Practitioner; Physician Assistant Medical; ADMITTING PHYSICIAN Thoracic Surgery (Cardiothoracic Vascular Surgery); CONSULT PHYSICIAN Internal Medicine Cardiovascular Disease; PRIMARYCARE PHYSICIAN Internal Medicine Geriatric Medicine; REFERRING PHYSICIAN Internal Medicine Cardiovascular Disease
PROC: 02H63JZ Insertion of Pacemaker Lead into Right Atrium, Percutaneous Approach (ICD-10-PCS; 2023-10-13)
PROC: 02HK3JZ Insertion of Pacemaker Lead into Right Ventricle, Percutaneous Approach (ICD-10-PCS; 2023-10-13)
PROC: 02RF38Z Replacement of Aortic Valve with Zooplastic Tissue, Percutaneous Approach (ICD-10-PCS; 2023-10-13)
PROC: 0JH606Z Insertion of Pacemaker, Dual Chamber into Chest Subcutaneous Tissue and Fascia, Open Approach (ICD-10-PCS; 2023-10-13)
DX: I35.0 Nonrheumatic aortic (valve) stenosis (principal); I50.43 Acute on chronic combined systolic (congestive) and diastolic (congestive) heart failure; I44.2 Atrioventricular block, complete; I25.10 Atherosclerotic heart disease of native coronary artery without angina pectoris; I73.9 Peripheral vascular disease, unspecified; I11.0 Hypertensive heart disease with heart failure; E78.00 Pure hypercholesterolemia, unspecified; E86.1 Hypovolemia; D64.89 Other specified anemias; E11.9 Type 2 diabetes mellitus without complications; Z79.82 Long term (current) use of aspirin; Z79.899 Other long term (current) drug therapy; Z82.49 Family history of ischemic heart disease and other diseases of the circulatory system; Z85.72 Personal history of non-Hodgkin lymphomas; Z95.1 Presence of aortocoronary bypass graft
CPT/HCPCS: 93308; 33208; 33361; 36415; 71045; 71046; 80048; 80053; 81003; 82248; 83036; 83735; 83880; 85014; 85018; 85025; 85027; 85049; 85347; 85610; 85730; 86850; 86900; 86901; 87070; 93005; 93306; 93321; 93325; C1760; C1769; C1785; C1887; C1892; C1894; C1898; Q9967

== ENCOUNTER → 2023-10-21 11:16 | Outpatient (REF) | payer OTHER, SELFPAY | LOC: RAD 11:16 | PROVIDERS: ATTENDING PHYSICIAN Internal Medicine Cardiovascular Disease; FAMILY PHYSICIAN Internal Medicine Geriatric Medicine | DX: Z95.2 Presence of prosthetic heart valve (principal); R19.09 Other intra-abdominal and pelvic swelling, mass and lump | CPT/HCPCS: 93926 ==

== ENCOUNTER → 2023-11-11 10:09 | Outpatient (REF) | payer OTHER, SELFPAY | LOC: RCS 10:09 | PROVIDERS: ATTENDING PHYSICIAN Internal Medicine Cardiovascular Disease; FAMILY PHYSICIAN Internal Medicine Geriatric Medicine | DX: I35.0 Nonrheumatic aortic (valve) stenosis (principal) | CPT/HCPCS: 93306 ==

== ENCOUNTER 2023-12-07 09:48 | Outpatient (RCR) | payer OTHER, SELFPAY | END 2023-12-07 23:59 | disposition home or self-care (01) | LOC: CRHB 09:48 | PROVIDERS: ATTENDING PHYSICIAN Internal Medicine Cardiovascular Disease | DX: I25.10 Atherosclerotic heart disease of native coronary artery without angina pectoris (principal); Z95.4 Presence of other heart-valve replacement; Z95.1 Presence of aortocoronary bypass graft | CPT/HCPCS: G0422; G0423 ==

== ENCOUNTER 2024-01-06 09:38 | Outpatient (RCR) | payer OTHER, SELFPAY | END 2024-01-06 23:59 | disposition home or self-care (01) | LOC: CRHB 09:38 | PROVIDERS: ATTENDING PHYSICIAN Internal Medicine Cardiovascular Disease; FAMILY PHYSICIAN Internal Medicine Geriatric Medicine | DX: I25.10 Atherosclerotic heart disease of native coronary artery without angina pectoris (principal); Z95.4 Presence of other heart-valve replacement; Z95.1 Presence of aortocoronary bypass graft | CPT/HCPCS: G0422; G0423 ==

== ENCOUNTER 2024-02-06 10:46 | Outpatient (RCR) | payer OTHER, SELFPAY | END 2024-02-06 23:59 | disposition home or self-care (01) | LOC: CRHB 10:46 | PROVIDERS: ATTENDING PHYSICIAN Internal Medicine Cardiovascular Disease; FAMILY PHYSICIAN Internal Medicine Geriatric Medicine | DX: I25.10 Atherosclerotic heart disease of native coronary artery without angina pectoris (principal); Z95.4 Presence of other heart-valve replacement (principal) | CPT/HCPCS: G0422; G0423 ==

== ENCOUNTER → 2024-08-08 08:46 | Outpatient (REF) | payer OTHER, SELFPAY | LOC: RAD 08:46 | PROVIDERS: ATTENDING PHYSICIAN Internal Medicine Cardiovascular Disease; FAMILY PHYSICIAN Internal Medicine | DX: I44.2 Atrioventricular block, complete (principal); H53.8 Other visual disturbances | CPT/HCPCS: 93880 ==

== ENCOUNTER → 2024-08-20 11:40 | Outpatient (REF) | payer OTHER, SELFPAY ==
[2024-08-20 13:00] LABS: C-Reactive Protein < 5.00 mg/L (0.0-10.00)
== END ==
LOC: REG 11:40
PROVIDERS: ATTENDING PHYSICIAN Ophthalmology; FAMILY PHYSICIAN Internal Medicine
DX: G44.85 Primary stabbing headache (principal); G45.9 Transient cerebral ischemic attack, unspecified
CPT/HCPCS: 36415; 85652; 86140

== ENCOUNTER 2024-08-31 07:48 | Day surgery (SDC) | payer OTHER, SELFPAY ==
[2024-08-31] VITALS (13 sets, daily range): BP systolic 19–163; BP diastolic 69–98
[2024-08-31] MEDS: PERIDEX 0.12% ORAL RINSE 15 ML PO (08:44)
[2024-08-31] MEDS: BACTROBAN 2% OINTMENT 1 APPLIC NASAL (08:46)
[2024-08-31] MEDS: NSS 1000 IV (08:48)
[2024-08-31] MEDS: VANCOCIN 200 IV (08:55)
[2024-08-31 09:04] LABS: Hematocrit 43.3 % (37.0-47.0); Hemoglobin 14.9 g/dL (12.0-16.0); Mean Corp Hgb Conc. 34.4 g/dL (33.0-37.0); Mean Corpuscular Volume 88.4 fL (81.0-99.0); Platelet Count 186 10^3/uL (130-400); Red Cell Dist. Width 13.8 % (11.5-14.5)
[2024-08-31 09:20] LABS: Blood Urea Nitrogen 24 mg/dl (7-17); Calcium 9.4 mg/dl (8.4-10.2); Carbon Dioxide 25 mmol/L (22-30); Chloride 107 mmol/L (98-107); Glucose 124 mg/dl (70-99); Potassium 3.9 mmol/L (3.5-5.1); Sodium 139 mmol/L (135-145); eGFR > 60.00
--- NOTE | 2024-08-31 09:50 | W.SUR.PREOP ---
Pre-Operative Surgical Note
-
I have examined this patient prior to the performance of the scheduled procedure.
The patient's condition is unchanged from the time of the current History and
Physical and the patient is able to undergo the scheduled procedure.
--- NOTE | 2024-08-31 14:06 | OR.RPT ---
Operative Report
Operative Report
Date of Operation: 08/31/2024
Pre Op Diagnosis: Suspected temporal arteritis
Post Op Diagnosis: Suspected temporal arteritis
Procedure: BILATERAL temporal artery biopsies
Surgeon: Marco A Salazar III, MD
Control Room Tender: Gustavo Hoffmann MD PGY-6
Anesthesia: Sedation/local
Complications: None
Estimated Blood Loss: Minimal
History and Indications for Procedure: 88-year-old female with symptom constellation concerning for temporal arteritis. We were asked to perform bilateral temporal artery biopsies.
Procedure in Detail: Tona Rose was correctly identified and placed supine on the operating table. After adequate induction of anesthesia the hair overlying the bilateral temporal regions was shaved. The temporal pulses were palpated
bilaterally and appropriate skin incisions were marked over the temporal pulses bilaterally. The bilateral temporal regions were then prepped and draped in the usual sterile fashion. The patient received preoperative antibiotics. A timeout
procedure was performed with the nursing and anesthesia staff confirming the patient's identity as well as the nature and laterality of the procedure.
Bilateral temporal artery biopsies were performed one at a time in the same manner as follows: Local anesthesia was infiltrated into the skin and subcutaneous tissue at the skin umer. A skin incision was made over the temporal skin umer.
Electrocautery and sharp dissection were used to expose the temporal artery. After adequate length of temporal artery had been exposed within the wound bed the proximal and distal ends were ligated with silk ties. The intervening artery segment
was transected proximally and distally and removed. The artery segment was identified according to laterality and passed off to the back table to be labeled and sent to pathology. The wound was then closely inspected for hemostasis which was
achieved. The wound was irrigated with saline solution.
Each wound was closed in layers. Skin glue was applied to each incision bilaterally.
The patient tolerated the procedure well and was taken to the recovery room in good condition.
Attestation: I was present and responsible for the entire procedure
Signed:
Marco A Salazar III, MD
[facility]
[phone] (cyah)
== END 2024-08-31 13:45 | disposition home or self-care (01) ==
LOC: CATH 07:48
PROVIDERS: Nurse Practitioner Acute Care; ATTENDING PHYSICIAN Surgery Vascular Surgery; FAMILY PHYSICIAN Internal Medicine; OTHER PHYSICIAN Internal Medicine Cardiovascular Disease; PRIMARYCARE PHYSICIAN Internal Medicine Geriatric Medicine
DX: H53.8 Other visual disturbances (principal); I25.10 Atherosclerotic heart disease of native coronary artery without angina pectoris; Z95.1 Presence of aortocoronary bypass graft; I11.0 Hypertensive heart disease with heart failure; I50.9 Heart failure, unspecified; Z79.82 Long term (current) use of aspirin
CPT/HCPCS: 37609; 80048; 85027; 88305; 88313